=== PATIENT | male | born 1990 | race Caucasian/White ===

== ENCOUNTER 2023-10-14 09:54 | Outpatient (CLI) | payer BC | END 2023-10-14 09:55 | disposition home or self-care (01) | LOC: CSHMRI 09:54 | PROVIDERS: ATTEND Family Medicine | DX: M43.06 Spondylolysis, lumbar region (principal); M43.16 Spondylolisthesis, lumbar region; M47.816 Spondylosis without myelopathy or radiculopathy, lumbar region | CPT/HCPCS: 72148 ==